=== PATIENT | male | born 1950 | race Caucasian/White ===

== ENCOUNTER 2019-11-05 05:41 | Day surgery (SDC) | payer MEDICARE, OTHER ==
[~2019-11-05] VITALS: Ht 180.3 cm; Wt 65.2 kg
[2019-11-05 06:00] VITALS: BP 141/79; PULSE 61; TEMP 97.4
[2019-11-05] MEDS ORDERED: LEVOXYL0.2 MG PO (06:06)
[2019-11-05] MEDS ORDERED: CYMBALTA 60MG60 MG PO (06:06)
[2019-11-05] MEDS ORDERED: SYNTHROID0.3 MG PO (06:07)
[2019-11-05] MEDS ORDERED: PROAIR HFA0.09 MG/AC IH (06:07)
[2019-11-05 08:30] VITALS: BP 123/73; PULSE 46; TEMP 97.6
--- NOTE | 2019-11-05 08:30 | NUR ---
The patient arrived back to [facility] from the operating room at this time. The patient appears drowsy but arouses easily to his name. The patient's coban dressing to his left foot appears clean, dry and intact and has a post op shoe in place at this time. Post operative vital signs were started at this time. Call light is within reach. Family brought back to be at his bedside. Will continue to monitor the patient.
[2019-11-05 08:45] VITALS: BP 125/76; PULSE 47
--- NOTE | 2019-11-05 08:45 | NUR ---
The patient appears to be more alert and is talking with his at this time. Vital signs appear stable. Call light is within reach. Will continue to monitor the patient.
[2019-11-05] MEDS ORDERED: PERCOCET 325 MG1 TA2 PO (08:52)
[2019-11-05 09:00] VITALS: BP 103/81; PULSE 43
--- NOTE | 2019-11-05 09:00 | NUR ---
The patient agrees to try some water at this time. The patient denies any pain or nausea at this time. remains at his bedside. Will continue to monitor the patient.
[2019-11-05 09:15] VITALS: BP 109/72; PULSE 43
--- NOTE | 2019-11-05 09:18 | NUR ---
Discharge instructions were reviewed with the patient and his at this time. They both verbalized understanding and have no questions for the nurse at this time. The patient's IV to his right hand was removed and a pressure dressing was applied to the site. The nurse instructed the patient to get dressed and notify the staff when he is ready to be escorted out.
--- NOTE | 2019-11-05 09:35 | NUR ---
The patient was escorted out via wheelchair to a private vehicle by [employer]. The patient's belongings and discharge paperwork were sent with him. The patient's is present to drive him home.
== END 2019-11-05 09:35 | disposition home or self-care (01) ==
LOC: SDCO 05:41
DX: M20.12 Hallux valgus (acquired), left foot (principal); M20.42 Other hammer toe(s) (acquired), left foot; L85.1 Acquired keratosis [keratoderma] palmaris et plantaris; J45.20 Mild intermittent asthma, uncomplicated; D50.9 Iron deficiency anemia, unspecified; E03.9 Hypothyroidism, unspecified; F41.9 Anxiety disorder, unspecified; Z88.0 Allergy status to penicillin; Z79.899 Other long term (current) drug therapy
CPT/HCPCS: J0690; J2704; J7120

== ENCOUNTER → 2020-06-30 | Outpatient (CLI) | payer MEDICARE, OTHER ==
[~2020-06-30] MED LIST: CYMBALTA 60MG60 MG PO; LEVOXYL0.2 MG PO; PERCOCET 325 MG1 TA2 PO; PROAIR HFA0.09 MG/AC IH; SYNTHROID0.3 MG PO
== END ==
LOC: COL.PUL 12:44
DX: J45.30 Mild persistent asthma, uncomplicated (principal)
CPT/HCPCS: J7674